=== PATIENT | female | born 1970 | race African-American/Black ===

== ENCOUNTER → 2016-12-22 | Outpatient (CLI) | payer OTHER ==
[~2016-12-22] MED LIST: AMITRIPTYLINE H25 M1 PO; CYMBALTA 30MG30 MG PO; HYZAAR 50-12.1 UDTAB PO
[2016-12-22 12:04] LABS: CALCIUM 9.2 mg/dL (8.4-10.2); CREATININE, serum 0.74 mg/dL (0.52-1.25); POTASSIUM 3.6 mmol/L (3.4-5.0)
== END ==
LOC: COL.LAB 11:23
DX: M79.1 Myalgia (principal); M25.50 Pain in unspecified joint; I10 Essential (primary) hypertension; R60.9 Edema, unspecified

== ENCOUNTER 2017-01-10 12:44 | Emergency (ER) | payer MEDICAID ==
[~2017-01-10] VITALS: Ht 165.1 cm; Wt 132.7 kg
[2017-01-10 12:46] VITALS: TEMP 99.1
[2017-01-10] MEDS ORDERED: HYZAAR 50-12.1 UDTAB PO ×2 (13:07→13:37)
[2017-01-10] MEDS ORDERED: AMITRIPTYLINE H25 M1 PO (13:12)
[2017-01-10] MEDS ORDERED: CYMBALTA 30MG30 MG PO (13:12)
[2017-01-10 13:26] LABS: BASO % 0.4 % (0.0-2.0); EOS # 0.1 (0.0-0.7); EOS % 0.9 % (0-4.0); GRAN # 5.3 (1.4-6.5); GRAN % 68.5 % (42.2-75.2); HEMATOCRIT 37.2 % (37.0-47.0); HEMOGLOBIN 12.3 g/dl (12.5-16.0); LYMPH # 1.9 (1.2-3.4); LYMPH % 25.1 % (20.0-51.0); MEAN CELL VOLUME 82 fl (80.0-100.0); MEAN CORPUSCULAR HEMOGLOBIN 27 pg (27.0-31.0); MEAN CORPUSCULAR HGB CONC 33 g/dl (33.0-37.0); MEAN PLATELET VOLUME 9.8 fl (7.4-10.4); MONO # 0.4 (0.1-0.6); MONO % 4.7 % (1.7-9.3); PLATELET COUNT 434 K/mm3 (130-400); RED BLOOD COUNT 4.55 M/mm3 (4.10-5.30); REDCELL DISTRIBUTION WIDTH-CV 13.7 % (11.5-14.5); WHITE BLOOD COUNT 7.7 K/mm3 (4.8-10.8)
[2017-01-10 13:36] LABS: BILIRUBIN,TOTAL 0.5 mg/dL (0.0-1.0); CREATININE, serum 0.81 mg/dL (0.52-1.25); POTASSIUM 3.1 mmol/L (3.4-5.0); TOTAL PROTEIN 7.7 gm/dL (6.4-8.2)
[2017-01-10 14:28] VITALS: BP 148/93; PULSE 52
[2017-01-10 15:51] LABS: C-REACTIVE PROTEIN 0.5 mg/dL (0.0-0.9)
== END 2017-01-10 14:35 | disposition home or self-care (01) ==
LOC: COL.ER 12:44
PROVIDERS: Family Medicine
DX: I10 Essential (primary) hypertension (principal); R20.2 Paresthesia of skin; F32.9 Major depressive disorder, single episode, unspecified

== ENCOUNTER → 2017-02-26 | Outpatient (CLI) | payer OTHER ==
[2017-02-26 15:41] LABS: ADJUSTED CALCIUM 9.1 mg/dL (8.4-10.2); BASO % 0.5 % (0.0-2.0); BILIRUBIN,TOTAL 0.4 mg/dL (0.0-1.0); CALCIUM 9.1 mg/dL (8.4-10.2); CREATININE, serum 0.71 mg/dL (0.52-1.25); EOS # 0.1 (0.0-0.7); EOS % 1.2 % (0-4.0); GRAN # 4.4 (1.4-6.5); GRAN % 53.7 % (42.2-75.2); HEMATOCRIT 37.4 % (37.0-47.0); LYMPH # 3.2 (1.2-3.4); LYMPH % 38.8 % (20.0-51.0); MEAN CELL VOLUME 84 fl (80.0-100.0); MEAN CORPUSCULAR HEMOGLOBIN 27 pg (27.0-31.0); MEAN CORPUSCULAR HGB CONC 32 g/dl (33.0-37.0); MEAN PLATELET VOLUME 9.6 fl (7.4-10.4); MONO # 0.5 (0.1-0.6); MONO % 5.6 % (1.7-9.3); PLATELET COUNT 408 K/mm3 (130-400); RED BLOOD COUNT 4.45 M/mm3 (4.10-5.30); REDCELL DISTRIBUTION WIDTH-CV 14.3 % (11.5-14.5); TOTAL PROTEIN 7.5 gm/dL (6.4-8.2); WHITE BLOOD COUNT 8.2 K/mm3 (4.8-10.8)
[2017-02-26 16:11] LABS: THYROID STIMULATING HORMONE 1.62 uIU/mL (0.465-4.680)
[2017-02-26 18:05] LABS: ERYTHROCYTE SEDIMENTATION RATE 7 mm/hr (0-20)
[2017-02-28 11:23] LABS: RHEUMATOID FACTOR-SCREEN <15 IU/mL (0-29)
== END ==
LOC: COL.LAB 14:36
DX: M25.50 Pain in unspecified joint (principal); M54.9 Dorsalgia, unspecified; R53.1 Weakness; E66.9 Obesity, unspecified

== ENCOUNTER → 2017-04-04 | Outpatient (CLI) | payer MEDICAID ==
[~2017-04-04] MED LIST changes: +LASIX 40MG TABL40 MG PO
== END ==
LOC: COL.RAD 13:07
DX: M17.11 Unilateral primary osteoarthritis, right knee (principal)

== ENCOUNTER 2017-07-20 16:04 | Emergency (ER) | payer SELFPAY ==
[~2017-07-20] VITALS: Ht 165.1 cm; Wt 129.5 kg
[2017-07-20 16:10] VITALS: TEMP 98.8
[2017-07-20] MEDS ORDERED: NEURONTIN100 MG/CAP PO ×2 (16:32→18:37)
[2017-07-20] MEDS ORDERED: AMITRIPTYLINE H10 M1 PO (16:33)
[2017-07-20 17:11] LABS: ALBUMIN 3.9 gm/dL (3.5-5.0); BILIRUBIN,TOTAL 0.2 mg/dL (0.0-1.0); C-REACTIVE PROTEIN 0.9 mg/dL (0.0-0.9); CALCIUM 9.1 mg/dL (8.4-10.2); CREATININE, serum 0.72 mg/dL (0.52-1.25); POTASSIUM 3.9 mmol/L (3.4-5.0); TOTAL PROTEIN 7.3 gm/dL (6.4-8.2)
[2017-07-20 17:15] LABS: BASO % 0.3 % (0.0-2.0); EOS # 0.1 (0.0-0.7); GRAN # 5.4 (1.4-6.5); GRAN % 60.6 % (42.2-75.2); LYMPH # 2.8 (1.2-3.4); LYMPH % 31.7 % (20.0-51.0); MEAN CELL VOLUME 84 fl (80.0-100.0); MEAN CORPUSCULAR HGB CONC 32 g/dl (33.0-37.0); MEAN PLATELET VOLUME 9.8 fl (7.4-10.4); MONO # 0.6 (0.1-0.6); MONO % 6.1 % (1.7-9.3); PLATELET COUNT 385 K/mm3 (130-400); RED BLOOD COUNT 4.27 M/mm3 (4.10-5.30); REDCELL DISTRIBUTION WIDTH-CV 13.8 % (11.5-14.5)
[2017-07-20 17:17] LABS: HEMATOCRIT 35.9 % (37.0-47.0); HEMOGLOBIN 11.6 g/dl (12.5-16.0); MEAN CORPUSCULAR HEMOGLOBIN 27 pg (27.0-31.0)
[2017-07-20] MEDS ORDERED: LASIX 40MG TABL40 MG PO (18:37)
[2017-07-20] MEDS ORDERED: HYZAAR 50-12.1 UDTAB PO (18:37)
[2017-07-20] MEDS ORDERED: CYMBALTA 30MG30 MG PO (18:37)
[2017-07-20] MEDS ORDERED: AMITRIPTYLINE H25 M1 PO (18:37)
[2017-07-20 19:15] VITALS: BP 153/72; PULSE 60
== END 2017-07-20 19:15 | disposition home or self-care (01) ==
LOC: COL.ER 16:04
PROVIDERS: Emergency Medicine
DX: I10 Essential (primary) hypertension (principal); M79.7 Fibromyalgia; E66.9 Obesity, unspecified; M25.561 Pain in right knee; M25.541 Pain in joints of right hand; M25.551 Pain in right hip; M25.571 Pain in right ankle and joints of right foot; Z68.42 Body mass index [BMI] 45.0-49.9, adult

== ENCOUNTER 2018-05-20 13:16 | Emergency (ER) | payer OTHER ==
[~2018-05-20] VITALS: Ht 165.1 cm; Wt 129.5 kg
[~2018-05-20 13:16] MED LIST changes: +AMITRIPTYLINE H10 M1 PO; +NEURONTIN100 MG/CAP PO
[2018-05-20 13:17] VITALS: TEMP 98.6
[2018-05-20 13:51] LABS: COLLECTION METHOD CLEAN CATCH
[2018-05-20 13:57] LABS: MUCOUS Present /lpf; PH 6 (5-8); URINE APPEARANCE Cloudy; URINE BACTERIA None Seen /hpf; URINE BILIRUBIN Negative (NEGATIVE); URINE BLOOD 1+ (NEGATIVE); URINE COLOR Yellow; URINE GLUCOSE Negative (NEGATIVE); URINE KETONE Trace (NEGATIVE); URINE LEUKOCYTE ESTERASE Negative (NEGATIVE); URINE NITRATE Negative (NEGATIVE); URINE PROTEIN(semi-quant) 2+ (NEGATIVE); URINE RBC 0-2 /hpf; URINE UROBILINOGEN Negative (NEGATIVE)
[2018-05-20 14:31] LABS: BASO % 0.3 % (0.0-2.0); GRAN # 8.6 (1.4-6.5); GRAN % 73.8 % (42.2-75.2); HEMATOCRIT 39.9 % (37.0-47.0); HEMOGLOBIN 13.1 g/dl (12.5-16.0); LYMPH # 2.2 (1.2-3.4); LYMPH % 19.3 % (20.0-51.0); MEAN CELL VOLUME 83 fl (80.0-100.0); MEAN CORPUSCULAR HEMOGLOBIN 27 pg (27.0-31.0); MEAN CORPUSCULAR HGB CONC 33 g/dl (33.0-37.0); MEAN PLATELET VOLUME 9.7 fl (7.4-10.4); MONO # 0.7 (0.1-0.6); MONO % 6.3 % (1.7-9.3); PLATELET COUNT 481 K/mm3 (130-400); RED BLOOD COUNT 4.79 M/mm3 (4.10-5.30); REDCELL DISTRIBUTION WIDTH-CV 14.1 % (11.5-14.5)
[2018-05-20 14:42] LABS: ALANINE AMINOTRANSFERASE 15 U/L (9-52); ALBUMIN 4.2 gm/dL (3.5-5.0); ALKALINE PHOSPHATASE 75 U/L (50-136); ANION GAP 7 mmol/L (7-16); AST,SGOT 14 U/L (15-37); BILIRUBIN,TOTAL 0.7 mg/dL (0.0-1.0); BLOOD UREA NITROGEN 11 mg/dL (7-17); CALCIUM 9.1 mg/dL (8.4-10.2); CARBON DIOXIDE 29 mmol/L (22-30); CHLORIDE 106 mmol/L (98-107); CREATININE, serum 0.73 mg/dL (0.52-1.25); GLUCOSE 115 mg/dL (74-106); LIPASE 21 U/L (23-300); POTASSIUM 3.3 mmol/L (3.4-5.0); SODIUM 142 mmol/L (137-145)
[2018-05-20 14:47] LABS: C-REACTIVE PROTEIN < 0.5 mg/dL (0.0-0.9)
[2018-05-20 15:05] LABS: TRICYCLIC ANTIDEPRESS URINE NEGATIVE
[2018-05-20] MEDS ORDERED: CYMBALTA 20MG20 MG PO (15:26)
[2018-05-20] MEDS ORDERED: ZESTRIL 20MG TA20 MG PO (15:29)
[2018-05-20 15:30] LABS: ACETAMINOPHEN < 10 ug/mL (10-30); SALICYLATE < 1.0 mg/dL
[2018-05-20] MEDS ORDERED: METHADONE H10 MG/TAB PO (15:30)
[2018-05-20 15:45] VITALS: PULSE 75
[2018-05-20] MEDS ORDERED: PHENERGAN 25 TA25 MG PO (17:54)
[2018-05-20] MEDS ORDERED: HYZAAR 50-12.1 UDTAB PO (17:54)
[2018-05-20 18:06] VITALS: BP 162/101
== END 2018-05-20 18:07 | disposition home or self-care (01) ==
LOC: COL.ER 13:16
PROVIDERS: Emergency Medicine; Family Medicine
DX: R11.2 Nausea with vomiting, unspecified (principal); R10.9 Unspecified abdominal pain; E86.9 Volume depletion, unspecified; F32.9 Major depressive disorder, single episode, unspecified; R45.851 Suicidal ideations; I10 Essential (primary) hypertension; Z91.14 Patient's other noncompliance with medication regimen
CPT/HCPCS: C9113; J2550; J7030; Q9967

== ENCOUNTER 2018-05-21 15:37 | Observation (INO) | payer OTHER ==
[~2018-05-21] VITALS: Ht 165.1 cm; Wt 129.0 kg
[~2018-05-21 15:37] MED LIST changes: +CYMBALTA 20MG20 MG PO; +METHADONE H10 MG/TAB PO; +PHENERGAN 25 TA25 MG PO; +ZESTRIL 20MG TA20 MG PO
[2018-05-21 16:08] LABS: BASO % 0.4 % (0.0-2.0); EOS % 0.1 % (0-4.0); GRAN # 7.3 (1.4-6.5); GRAN % 75.3 % (42.2-75.2); HEMATOCRIT 41.2 % (37.0-47.0); HEMOGLOBIN 13.8 g/dl (12.5-16.0); LYMPH # 1.9 (1.2-3.4); LYMPH % 19.6 % (20.0-51.0); MEAN CELL VOLUME 82 fl (80.0-100.0); MEAN CORPUSCULAR HEMOGLOBIN 28 pg (27.0-31.0); MEAN CORPUSCULAR HGB CONC 34 g/dl (33.0-37.0); MEAN PLATELET VOLUME 9.6 fl (7.4-10.4); MONO # 0.4 (0.1-0.6); MONO % 4.4 % (1.7-9.3); PLATELET COUNT 501 K/mm3 (130-400); REDCELL DISTRIBUTION WIDTH-CV 14.2 % (11.5-14.5)
[2018-05-21 16:25] LABS: ALANINE AMINOTRANSFERASE 11 U/L (9-52); ALBUMIN 4.3 gm/dL (3.5-5.0); ALKALINE PHOSPHATASE 76 U/L (50-136); ANION GAP 8 mmol/L (7-16); AST,SGOT 16 U/L (15-37); BILIRUBIN,TOTAL 0.7 mg/dL (0.0-1.0); BLOOD UREA NITROGEN 14 mg/dL (7-17); CALCIUM 9.2 mg/dL (8.4-10.2); CARBON DIOXIDE 29 mmol/L (22-30); CHLORIDE 104 mmol/L (98-107); CREATININE, serum 0.82 mg/dL (0.52-1.25); GLUCOSE 102 mg/dL (74-106); LIPASE 27 U/L (23-300); POTASSIUM 3.5 mmol/L (3.4-5.0); SODIUM 140 mmol/L (137-145); TOTAL PROTEIN 8.1 gm/dL (6.4-8.2)
[2018-05-21 16:26] LABS: C-REACTIVE PROTEIN < 0.5 mg/dL (0.0-0.9)
[2018-05-21 16:33] LABS: TROPONIN-I < 0.012 ng/mL (0.000-0.034)
[2018-05-21 21:24] VITALS: BP 158/92; PULSE 63; TEMP 99.8
[2018-05-22 00:15] VITALS: BP 153/105; PULSE 75; TEMP 98.7
[2018-05-22 03:42] VITALS: BP 166/91; PULSE 62; TEMP 98.3
[2018-05-22 07:49] VITALS: BP 159/95; PULSE 69; TEMP 98.9
[2018-05-22 09:04] LABS: ANION GAP 9 mmol/L (7-16); BLOOD UREA NITROGEN 12 mg/dL (7-17); CALCIUM 8.8 mg/dL (8.4-10.2); CARBON DIOXIDE 26 mmol/L (22-30); CHLORIDE 104 mmol/L (98-107); CHOLESTEROL 147 mg/dL (120-200); CREATININE, serum 0.71 mg/dL (0.52-1.25); GLUCOSE 101 mg/dL (74-106); HDL CHOLESTEROL 36 mg/dL; LDL CHOLESTEROL 100 mg/dL; POTASSIUM 3.2 mmol/L (3.4-5.0); SODIUM 139 mmol/L (137-145); TRIGLYCERIDE 56 mg/dL
[2018-05-22 09:05] LABS: BASO # 0.1 (0.0-0.2); BASO % 0.6 % (0.0-2.0); EOS % 0.2 % (0-4.0); GRAN # 6.3 (1.4-6.5); GRAN % 66.9 % (42.2-75.2); HEMATOCRIT 38.8 % (37.0-47.0); HEMOGLOBIN 12.9 g/dl (12.5-16.0); LYMPH # 2.4 (1.2-3.4); LYMPH % 25.7 % (20.0-51.0); MEAN CELL VOLUME 82 fl (80.0-100.0); MEAN CORPUSCULAR HEMOGLOBIN 27 pg (27.0-31.0); MEAN CORPUSCULAR HGB CONC 33 g/dl (33.0-37.0); MEAN PLATELET VOLUME 9.8 fl (7.4-10.4); MONO # 0.6 (0.1-0.6); MONO % 6.4 % (1.7-9.3); PLATELET COUNT 474 K/mm3 (130-400); RED BLOOD COUNT 4.74 M/mm3 (4.10-5.30); REDCELL DISTRIBUTION WIDTH-CV 14.1 % (11.5-14.5)
[2018-05-22 09:17] LABS: TROPONIN-I < 0.012 ng/mL (0.000-0.034)
[2018-05-22 11:21] VITALS: BP 162/82; PULSE 69; TEMP 98.8
[2018-05-22 15:26] VITALS: BP 184/89; PULSE 68; TEMP 99.3
[2018-05-22 20:54] VITALS: BP 193/99; PULSE 80; TEMP 98.4
[2018-05-23 00:41] VITALS: BP 156/93; PULSE 76; TEMP 98.3
[2018-05-23 04:31] VITALS: BP 177/88; PULSE 66; TEMP 98.3
[2018-05-23 07:52] VITALS: BP 172/87; PULSE 76; TEMP 98.4
[2018-05-23 10:11] LABS: CALCIUM 8.9 mg/dL (8.4-10.2); CREATININE, serum 0.66 mg/dL (0.52-1.25); MAGNESIUM 1.8 mg/dL (1.6-2.3); POTASSIUM 3.3 mmol/L (3.4-5.0)
[2018-05-23 12:58] VITALS: BP 159/92; PULSE 71; TEMP 98
[2018-05-23 17:58] VITALS: BP 189/89; PULSE 70; TEMP 99.3
[2018-05-23 21:17] VITALS: BP 147/68; PULSE 82; TEMP 98.7
[2018-05-24] VITALS (11 sets, daily range): BP systolic 117–169; BP diastolic 50–97; PULSE 68–97; TEMP 98.2–98.5
[2018-05-24 15:02] LABS: CALCIUM 9.1 mg/dL (8.4-10.2); CREATININE, serum 0.71 mg/dL (0.52-1.25); POTASSIUM 3.5 mmol/L (3.4-5.0)
[2018-05-25 00:48] VITALS: BP 148/90; PULSE 76; TEMP 98.5
[2018-05-25 04:41] VITALS: BP 118/73; PULSE 71; TEMP 98
[2018-05-25 07:36] VITALS: BP 141/79; PULSE 68; TEMP 98.5
[2018-05-25] MEDS ORDERED: HYZAAR 25 MG-101 TAB PO (09:19)
[2018-05-25] MEDS ORDERED: PROTONIX 40MG T40 MG PO (09:22)
[2018-05-25] MEDS ORDERED: AMITRIPTYLINE H10 M1 PO (09:23)
[2018-05-25] MEDS ORDERED: CYMBALTA 20MG20 MG PO (09:23)
[2018-05-25] MEDS ORDERED: LASIX 40MG TABL40 MG PO (09:23)
[2018-05-25] MEDS ORDERED: PROBIOTIC ACID1 EAC3 PO (09:23)
[2018-05-25] MEDS ORDERED: NEURONTIN100 MG/CAP PO (09:23)
== END 2018-05-25 12:03 | disposition home or self-care (01) ==
LOC: COL.ER 15:37 → MEDICAL 20:02
PROVIDERS: Emergency Medicine; Nurse Practitioner; Physician Assistant
DX: K29.50 Unspecified chronic gastritis without bleeding (principal); K21.0 Gastro-esophageal reflux disease with esophagitis; K25.9 Gastric ulcer, unspecified as acute or chronic, without hemorrhage or perforation; K44.9 Diaphragmatic hernia without obstruction or gangrene; I16.0 Hypertensive urgency; G89.29 Other chronic pain; F32.9 Major depressive disorder, single episode, unspecified; E87.6 Hypokalemia; I10 Essential (primary) hypertension; M19.90 Unspecified osteoarthritis, unspecified site; M79.7 Fibromyalgia; Z91.14 Patient's other noncompliance with medication regimen; Z82.49 Family history of ischemic heart disease and other diseases of the circulatory system; Z80.41 Family history of malignant neoplasm of ovary; Z80.3 Family history of malignant neoplasm of breast; Z80.1 Family history of malignant neoplasm of trachea, bronchus and lung; Z83.3 Family history of diabetes mellitus; Z82.3 Family history of stroke; Z88.5 Allergy status to narcotic agent
CPT/HCPCS: 99232-AI; 99239; C9113; G0378; J0360; J1650; J1885; J2250; J2405; J2550; J3010; J3480; J7030; Q9967